=== PATIENT | male | born 1965 | race African-American/Black ===

== ENCOUNTER → 2018-12-17 | Day surgery (SDC) | payer OTHER ==
[2018-12-16 12:08] LABS: BASOPHILS # (AUTO) 0.1 (0.0-0.1); BASOPHILS % 1.1 % (0.0-1.0); EOSINOPHILS # (AUTO) 0.2 (0.0-0.4); HEMATOCRIT 38.8 % (38.2-49.6); HEMOGLOBIN 12.3 g/dL (14.0-18.0); LYMPHOCYTES # (AUTO) 1.3 (1.0-3.2); LYMPHOCYTES % 24.9 % (18.0-39.1); MEAN CORPUSCULAR HEMOGLOBIN 23.3 pg (28-32); MEAN CORPUSCULAR HGB CONC 31.7 g/dL (31-35); MEAN CORPUSCULAR VOLUME 73.5 fL (81-99); MONOCYTES # (AUTO) 0.7 (0.2-0.8); MONOCYTES % 12.9 % (4.4-11.3); NEUTROPHILS % 57.7 % (38.7-80.0); PLATELET COUNT 187 x10e3/uL (140-360); RED BLOOD COUNT 5.28 x10e6/uL (4.3-5.7); RED CELL DISTRIBUTION WIDTH 14.2 % (11.7-14.4)
[2018-12-16 12:23] LABS: INR 0.98; PROTHROMBIN TIME 13.5 seconds (11.9-14.5)
[2018-12-16 12:24] LABS: PARTIAL THROMBOPLASTIN TIME 42.3 seconds (23.8-35.5)
[2018-12-16 12:36] LABS: ANION GAP 13.7 mmol/L (8-16); CREATININE, SERUM 6.51 mg/dL (0.72-1.25); POTASSIUM 3.7 mmol/L (3.5-5.1)
[~2018-12-17] MED LIST: ACETAMINOPHEN 1000 MG/100 ML IV ONE; BUPIVACAINE 0.5%/EPI 30 ML SDV INJ ONE; CALCIUM ACETAT667 MG PO; CARVEDILOL12.5 MG PO; CEFAZOLIN SOD 1 GM/NS 50ML 100 ML IV ONE; DEXAMETHASONE SOD PHOS INJ 4 MG/ML VIAL ONE; EPHEDRINE SULFATE INJ 50 MG/10 ML SYR ONE; FENTANYL CITRATE/PF 100MCG/2 ML INJ ONE; HYDRALAZINE HCL25 MG PO; LIDOCAINE HCL 2% LOCAL INJ 5 ML SDV VIAL INJ ONE; ONDANSETRON HCL INJ 2MG/ML 2ML 2 MG/ML VIAL ONE; PROPOFOL IV EMULSION 10 MG/ML 20 ML VIAL ONE; REGLAN5 MG PO; SEVOFLURANE INHAL SOLN 250 ML PEN BTL ONE; SIMVASTATIN20 MG PO; SODIUM CHLORIDE 0.9% 500ML 500 ML ONE; lantus insulin SC
--- OUTSIDE RECORDS SUMMARY | 2018-12-17 05:23 | XMS REPORT | Clinical Summary ---
Author Author [facility] Address Unknown Phone Unavailable Care Team Providers Care Director Broadcast Name Role Phone Kaylee Rawls MD PCP Allergies No Known Allergies Medications Not on file Active Problems Problem Noted Date Essential hypertension 01/20/2016 Chronic renal failure, stage 5 01/20/2016 Diabetes mellitus type 2, controlled, with complications 01/20/2016 Social History Date Tobacco Use Types Packs/Day Years Used Never Smoker Sex Assigned at Date Recorded Not on file Industry Job Start Date Occupation Not on file Not on file Not on file Travel End Travel History Travel Start No recent travel history available. Last Filed Vital Signs Not on file Plan of Treatment Health Maintenance Due Date Last Done Comments DIABETIC RETINAL EYE EXAM 1966 DIABETIC FOOT EXAM 01/02/1976 COLONOSCOPY SCREENING 01/02/2016 SHINGLES VACCINES (#1) 01/02/2016 INFLUENZA VACCINE 01/23/2019 Results Not on fileafter 12/16/2017 Insurance Type Payer Benefit Subscriber ID Effective Phone Address Plan / Dates Group [facility] MEDICAID [facility] xxxxxxxxx [id number] COMM [employer] [id number] [facility] (Home) [place] [address] Advance Directives Patient has advance care planning documents on file. For more information, luciana leung contact: Osmin Canas [address] [place] [id number]
--- OUTSIDE RECORDS SUMMARY | 2018-12-17 05:24 | XMS REPORT ---
Author Author [facility] Address Unknown Phone Unavailable Care Team Providers Care Router Setter Name Role Phone Gloria GRESHAM Unavailable Unavailable Problems This patient has no known problems. Allergies, Adverse Reactions, Alerts This patient has no known allergies or adverse reactions. Medications This patient has no known medications. Results Test Description Test Time Test Comments Text Results Atomic Results Result Comments URINE CULTURE 2018-10-18 11:04:00 CULTURE (PEYTON) (test rdjf=3898) >100,000 col/mL skin alejandro HEMOGLOBIN [id number] 12:23:00* Test Item Value Reference Range Comments HEMOGLOBIN A1C (PEYTON) (test pvie=116) 7.1 % 4.3-6.1 POSSIBLE HEMOGLOBIN F VARIANT NOTED IN HEMOGLOBIN A1C CHROMATOGRAPH. SUGGEST HEM OGLOBIN ELECTROPHORESIS IF CLINICALLY INDICATED.U/S, ABDOMINAL, COMPLETE 2018-10-17 12:18:00Reason for Exam:->esrd; eval for renal txpFINAL REPORT TECHNIQUE: Grayscale ultrasound of the abdomen. INDICATION: 53-year-old man with end-stage renal disease for renal transplant evaluation. COMPARISON: None. FINDINGS: MIDLINE VASCULATURE: The visualized i nferior vena cava is patent. Portal vein is patent. The maximum visualized aorti c diameter is 2.4 cm. LIVER: The liver is normal in size and echogenicity with s mooth contour. No focal lesions. BILIARY:Gallbladder: No gallstones or sludge. N o gallbladder wall thickening, pericholecystic fluid, or distention. Negative so nographic Giles sign.Common bile duct measures 0.4 cm, within normal limits. No intrahepatic biliary ductal dilatation. PANCREAS: Visualized portions of the pa ncreas are unremarkable. SPLEEN: No splenomegaly. PERITONEUM: No free fluid. KID NEYS: The right kidney measures 9.7 cm in length and the left kidney measures 8. 6 cm in length. No hydronephrosis. No sonographically evident solid mass lesion. IMPRESSION:Small kidneys bilaterally, left more so than the right. Otherwise, unremarkable abdominal ultrasound. Signed: Laura Gomez MDReport Verified Da te/Time: 10/17/2018 12:18:51 Reading Location: [address] Radiology Reading Room P M RAD, CHEST, 2 [id number] 12:16:00Reason for Exam:->esrd; eval for renal txpFINAL REPORT TECHNIQUE: Frontal and lateral views of the chest. INDICATION: 53-year-old man with end-stage renal disease for renal transplant evaluation. COMPARISON: None. FINDINGS: LINES/TUBES: None. LUNGS: The lungs are well inflated. No consolidation or pulmonary edema. 4 mm circumscribed nodular density projects over the left lower lung zone. PLEURA: No pleural effusion or pneumothorax. HEART AND MEDIASTINUM: The cardiomediastinal silhouette is within normal limits. SOFT TISSUES AND BONES: Unremarkable. IMPRESSION:No acute cardiopulmonary abnormalities. 4 mm nodular density projecting over the left lower lung zone, likely a benign entity such as a vessel or calcified granuloma. If indicated, follow-up chest radiographs may be obtained in 6-12 months to reassess this finding. Signed: Laura Gomez MDReport Verified Date/Time: 10/17/2018 12:16:29 Reading Location: [address] Radiology Reading Room [id number] 08:43:00* Test Item Value Reference Range Comments PROSTATE SPECIFIC ANTIGEN (BEAKER) (test cemq=884) 1.1 ng/mL 0.0-4.0 COMPREHENSIVE METABOLIC [id number] 08:42:00* Test Item Value Reference Range Comments TOTAL PROTEIN (BEAKER) (test hndg=598) 8.4 gm/dL 6.0-8.3 ALBUMIN (BEAKER) (test vylx=9489) 4.1 g/dL 3.5-5.0 ALKALINE PHOSPHATASE (BEAKER) (test foaj=382) 100 U/L 40-150 BILIRUBIN TOTAL (BEAKER) (test nxgt=649) 0.5 mg/dL 0.2-1.2 SODIUM (BEAKER) (test kmtx=226) 138 meq/L 136-145 POTASSIUM (BEAKER) (test zymc=506) 4.1 meq/L 3.5-5.1 CHLORIDE (BEAKER) (test mqjp=970) 96 meq/L 98-107 CO2 (BEAKER) (test jayn=476) 32 meq/L 22-29 BLOOD UREA NITROGEN (BEAKER) (test surb=515) 30 mg/dL 7-21 CREATININE (BEAKER) (test vbak=024) 8.38 mg/dL 0.57-1.25 GLUCOSE RANDOM (BEAKER) (test mcbi=258) 121 mg/dL 70-105 CALCIUM (BEAKER) (test bcpc=560) 9.5 mg/dL 8.4-10.2 AST (SGOT) (BEAKER) (test nvug=207) 26 U/L 5-34 ALT (SGPT) (BEAKER) (test bveb=447) 27 U/L 6-55 EGFR (BEAKER) (test vmfa=7671) 8 mL/min/1.73 sq m ESTIMATED GFR IS NOT ACCURATE CREATININE CLEARANCE IN PREDICTING GLOMERULAR FILTRATION RATE. ESTIMATED GFR IS NOT APPLICABLE FOR DIALYSIS PATIENTS. PTH, [id number] 08:29:00* Test Item Value Reference Range Comments PARATHYROID HORMONE INTACT (BEAKER) (test oytt=965) 280.0 pg/mL 8.5-72.5 URIC [id number] 08:24:00* Test Item Value Reference Range Comments URIC ACID (BEAKER) (test ymrr=574) 4.8 mg/dL 2.6-7.2 [id number] 08:24:00* Test Item Value Reference Range Comments PHOSPHORUS (BEAKER) (test lkop=338) 2.7 mg/dL 2.3-4.7 LIPID [id number] 08:24:00* Test Item Value Reference Range Comments TRIGLYCERIDES (BEAKER) (test nbds=961) 97 mg/dL CHOLESTEROL (BEAKER) (test ppqt=109) 184 mg/dL HDL CHOLESTEROL (BEAKER) (test ollp=666) 45 mg/dL LDL CHOLESTEROL CALCULATED (BEAKER) (test xqfv=014) 120 mg/dL Triglyceride Reference Range: Low Risk <150 Borderline 150-199 High Risk 200-499 Very High Risk >=500Cholesterol Reference Range: Low Risk <200 Borderline 200-239 High Risk >240HDL Cholesterol Reference Range: Low Risk >=60 High Risk <40LDL Cholesterol Reference Range: Optimal <100 Near Optimal 100-129 Borderline 130-159 High 160-189 Very High >=190 GAMMA GLUTAMYL TRANSFERASE (GGT)2018-10-17 08:24:00* Test Item Value Reference Range Comments GAMMA GLUTAMYL TRANSFERASE (BEAKER) (test wxiz=780) 49 U/L 9-64 LACTATE DEHYDROGENASE (LDH)2018-10-17 08:24:00* Test Item Value Reference Range Comments LACTATE DEHYDROGENASE (BEAKER) (test ebfn=034) 179 U/L 125-220 [id number] 08:18:00* Test Item Value Reference Range Comments PROTIME (BEAKER) (test wohv=166) 13.8 seconds 11.7-14.7 INR (BEAKER) (test ziqz=485) 1.0 <=5.9 PARTIAL THROMBOPLASTIN TIME (BEAKER) (test vpji=308) 41.3 seconds 22.5-36.0 RECOMMENDED COUMADIN/WARFARIN INR THERAPY RANGESSTANDARD DOSE: 2.0 - 3.0 Inclu jojo: PROPHYLAXIS for venous thrombosis, systemic embolization; TREATMENT for inderjit ous thrombosis and/or pulmonary embolus.HIGH RISK: Target INR is 2.5-3.5 for pat ients with mechanical heart valves.URINALYSIS W/ [id number] 08:09:00 * Test Item Value Reference Range Comments COLOR (BEAKER) (test urts=135) Yellow CLARITY (BEAKER) (test gbtr=522) Cloudy SPECIFIC GRAVITY UA (BEAKER) (test pufm=259) 1.014 1.001-1.035 PH UA (BEAKER) (test ckmo=052) 6.0 5.0-8.0 PROTEIN UA (BEAKER) (test efar=517) 300 mg/dL Negative GLUCOSE UA (BEAKER) (test uqhi=612) Negative Negative KETONES UA (BEAKER) (test lqvh=466) Negative Negative BILIRUBIN UA (BEAKER) (test folz=464) Negative Negative BLOOD UA (BEAKER) (test yxql=180) Small Negative NITRITE UA (BEAKER) (test kmdl=616) Negative Negative LEUKOCYTE ESTERASE UA (BEAKER) (test gufl=979) Large Negative UROBILINOGEN UA (BEAKER) (test rumg=449) 2.0 mg/dL 0.2-1.0 RBC UA (BEAKER) (test tqqx=783) 69 /HPF WBC UA (BEAKER) (test bbse=967) 1162 /HPF BACTERIA (BEAKER) (test gtwf=330) Occasional MUCUS (BEAKER) (test zuay=9324) Rare SOURCE(BEAKER) (test sfqb=3799) CBC W/PLT COUNT & AUTO [id number] 08:06:00* Test Item Value Reference Range Comments WHITE BLOOD CELL COUNT (BEAKER) (test fzxt=827) 6.1 K/ L 3.5-10.5 RED BLOOD CELL COUNT (BEAKER) (test qkbp=593) 5.12 M/ L 4.63-6.08 HEMOGLOBIN (BEAKER) (test xeyy=598) 11.7 GM/DL 13.7-17.5 HEMATOCRIT (BEAKER) (test ufmt=396) 38.8 % 40.1-51.0 MEAN CORPUSCULAR VOLUME (BEAKER) (test dqjg=697) 75.8 fL 79.0-92.2 MEAN CORPUSCULAR HEMOGLOBIN (BEAKER) (test jbgy=890) 22.9 pg 25.7-32.2 MEAN CORPUSCULAR HEMOGLOBIN CONC (BEAKER) (test ywoc=197) 30.2 GM/DL 32.3-36.5 RED CELL DISTRIBUTION WIDTH (BEAKER) (test txoq=763) 14.6 % 11.6-14.4 PLATELET COUNT (BEAKER) (test stqp=851) 191 K/CU MM 150-450 MEAN PLATELET VOLUME (BEAKER) (test hwag=710) 9.0 fL 9.4-12.4 NUCLEATED RED BLOOD CELLS (BEAKER) (test ugsr=235) 0 /100 WBC 0-0 NEUTROPHILS RELATIVE PERCENT (BEAKER) (test tzsz=440) 53 % LYMPHOCYTES RELATIVE PERCENT (BEAKER) (test ckaz=576) 31 % MONOCYTES RELATIVE PERCENT (BEAKER) (test majg=195) 12 % EOSINOPHILS RELATIVE PERCENT (BEAKER) (test lbbs=445) 3 % BASOPHILS RELATIVE PERCENT (BEAKER) (test rizb=855) 1 % NEUTROPHILS ABSOLUTE COUNT (BEAKER) (test dcif=541) 3.21 K/ L 1.78-5.38 LYMPHOCYTES ABSOLUTE COUNT (BEAKER) (test skng=962) 1.86 K/ L 1.32-3.57 MONOCYTES ABSOLUTE COUNT (BEAKER) (test mmxt=364) 0.71 K/ L 0.30-0.82 EOSINOPHILS ABSOLUTE COUNT (BEAKER) (test hipw=620) 0.20 K/ L 0.04-0.54 BASOPHILS ABSOLUTE COUNT (BEAKER) (test oted=654) 0.06 K/ L 0.01-0.08 IMMATURE GRANULOCYTES-RELATIVE PERCENT (BEAKER) (test vfzo=5593) 0 % 0-1 CYTOMEGALOVIRUS ANTIBODY, [id number] 12:42:00* Test Item Value Reference Range Comments CYTOMEGALOVIRUS, IGG (BEAKER) (test euxd=2166) Positive Negative, Equivocal CMV IgG Result Interpretation: </=0.8 Al Negative 0.9-1.0 Al Equivocal >/=1.1 Al PositiveCYTOMEGALOVIRUS ANTIBODY, [id number] 12:42:00* Test Item Value Reference Range Comments CYTOMEGALOVIRUS IGM ANTIBODY (BEAKER) (test hoyv=3850) Negative Negative, Equivocal CMV IgM Result Interpretation: </=0.8 Al Negative 0.9-1.0 Al Equivocal > /=1.1 Al PositiveEBV ANTIBODY, [id number] 12:42:00* Test Item Value Reference Range Comments VIOLET TAVERAS VIRAL CAPSID ANTIGEN IGG (BEAKER) (test rtvd=7605) Positive Negative, Equivocal Violet Taveras Viral Capsid Antigen IgG Result Interpretation: </=0.8 Al Negative 0.9-1.0 Al Equivocal >/=1.1 Al PositiveEBV ANTIBODY, [id number] 12:42:00* Test Item Value Reference Range Comments VIOLET TAVERAS VIRAL CAPSID ANTIGEN IGM (BEAKER) (test dyud=1870) Negative Negative, Equivocal Violet Taveras Viral Capsid Antigen IgM Result Interpretation: </=0.8 Al Negative 0.9-1.0 Al Equivocal >/=1.1 Al PositiveVARICELLA ZOSTER ANTIBODY, [id number] 12:42:00* Test Item Value Reference Range Comments VARICELLA ZOSTER IGG (AL) (BEAKER) (test usfu=6577) 5.8 VARICELLA ZOSTER RESULT INTERPRETATIONS: <=0.8 Al Nonreactive: Presumed non-immune to VZV 0.9-1.0 Al Equivocal >=1.1 Al Reactive: Presumed immune to [id number] 11:04:00* Test Item Value Reference Range Comments RPR SCREEN (PEYTON) (test nykk=077) Nonreactive Nonreactive HEPATITIS B SURFACE [id number] 10:07:00* Test Item Value Reference Range Comments HEPATITIS B SURFACE ANTIGEN (2) (CrushBlvdSUE) (test rhuj=3372) Nonreactive Nonreactive HEPATITIS B SURFACE [id number] 10:07:00* Test Item Value Reference Range Comments HEPATITIS B SURFACE ANTIBODY (PEYTON) (test pttu=837) 14.6 mIU/mL <8.0 HEPATITIS B CORE ANTIBODY, [id number] 10:07:00* Test Item Value Reference Range Comments HEPATITIS B CORE IGM ANTIBODY ([facility]ush[facility]vd[facility]UE) (test xbgm=222) Nonreactive Nonreactive HEPATITIS C [id number] 10:07:00* Test Item Value Reference Range Comments HEPATITIS C ANTIBODY (PEYTON) (test tuma=438) Nonreactive Nonreactive HIV-1 ANTIGEN WITH HIV-1/2 [id number] 10:07:00* Test Item Value Reference Range Comments HIV-1 ANTIGEN WITH HIV 1\T\2 ANTIBODY (2) (Roamz) (test ojid=3753) Nonreactive Nonreactive
--- OUTSIDE RECORDS SUMMARY | 2018-12-17 05:24 | XMS REPORT | Clinical Summary ---
Author Author MARIPOSA [facility]Trans[facility] CorporationSh[facility] Address Unknown Phone Unavailable Care Team Providers Care Crop Duster Name Role Phone Kaylee Rawls MD PCP Allergies No Known Allergies Medications End Date Status Medication Sig Dispensed Refills Start Date Active carvedilol (COREG) 25 MG Take 25 mg by 0 tablet mouth 2 (two) times daily with breakfast and dinner. Active calcium acetate (PHOSLO) Take 667 mg 0 667 mg capsule by mouth 3 (three) times daily with meals. Active hydrALAZINE (APRESOLINE) Take 100 mg 0 100 MG tablet by mouth 3 (three) times daily. Active loratadine (CLARITIN) 10 Take 10 mg by 0 mg tablet mouth daily. Active benzonatate (TESSALON) Take 100 mg 0 100 MG capsule by mouth 3 (three) times daily as needed for Cough. Active metoclopramide (REGLAN) 5 Take 5 mg by 0 MG tablet mouth 4 (four) times daily. Active gabapentin (NEURONTIN) Take 100 mg 0 100 MG capsule by mouth 3 (three) times daily. 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 2 11/01/2018 diabetes mellitus, unspecified proliferative retinopathy type Pre-transplant evaluation for chronic kidney disease 08/06/2018 ESRD (end stage renal disease) 08/06/2018 Essential hypertension 08/06/2018 Type 2 diabetes mellitus with chronic kidney disease on chronic dialysis, 08/06/2018 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 use Encounters Care Team Description Date Type Specialty Shabana Gonzalez MSW 11/06/2018 Social Work Transplant Virginia Myers RN 11/04/2018 Telephone Transplant Tayler Navarro MD 10/31/2018 Follow-Up Transplant Tayler Navarro MD 10/31/2018 Evaluation Transplant Tayler Navarro MD Pre-transplant evaluation for chronic kidney disease (Primary Dx); ESRD (end stage renal disease) (HCC); Type 2 diabetes mellitus with chronic kidney disease on chronic dialysis, 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 use (HCC); Essential hypertension; 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, unspecified proliferative retinopathy type (HCC); Diabetic polyneuropathy associated with type 2 diabetes mellitus (HCC); Secondary hyperparathyroidism of renal origin (HCC); Anemia of renal disease 10/31/2018 Evaluation Transplant Arden Dawn II, MD Anemia of renal disease; Other specified diabetes mellitus with stage 4 chronic kidney disease, unspecified whether care home insulin use (HCC); Hyperlipidemia, unspecified hyperlipidemia type; Hypertensive renal disease; Pre-transplant evaluation for chronic kidney disease; ESRD (end stage renal disease) (HCC) 10/17/2018 Hospital Radiology Encounter Arden Dawn II, MD Anemia of renal disease; Other specified diabetes mellitus with stage 4 chronic kidney disease, 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 use (HCC); Hyperlipidemia, unspecified hyperlipidemia type; Hypertensive renal disease; Pre-transplant evaluation for chronic kidney disease; ESRD (end stage renal disease) (HCC) 10/17/2018 Hospital Encounter Arden Dawn II, MD Anemia of renal disease; Other specified diabetes mellitus with stage 4 chronic kidney disease, unspecified whether care home insulin use (HCC); Hyperlipidemia, unspecified hyperlipidemia type; Hypertensive renal disease; Pre-transplant evaluation for chronic kidney disease; ESRD (end stage renal disease) ([facility]) 10/17/2018 Hospital Cardiology Encounter Arden Dawn II, MD Anemia of renal disease; Other specified diabetes mellitus with stage 4 chronic kidney disease, 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 use (HCC); Hyperlipidemia, unspecified hyperlipidemia type; Hypertensive renal disease; Pre-transplant evaluation for chronic kidney disease; ESRD (end stage renal disease) ([facility]) 10/17/2018 Hospital Cardiology Encounter Arden Dawn II, MD Anemia of renal disease; Other specified diabetes mellitus with stage 4 chronic kidney disease, unspecified whether care home insulin use (HCC); Hyperlipidemia, unspecified hyperlipidemia type; Hypertensive renal disease; Pre-transplant evaluation for chronic kidney disease; ESRD (end stage renal disease) ([facility]) 10/17/2018 Orders Only Kaylee Huffman MD 10/17/2018 Outside Orders Tayler Navarro MD Taylor, Sherita, RN Pre-transplant evaluation for chronic kidney disease; ESRD (end stage renal disease) ([facility]); Hypertension, unspecified type; Type 2 diabetes mellitus with chronic kidney disease on chronic dialysis, unspecified whether care home insulin use ([facility]) 08/06/2018 Office Visit Transplant Arden Dawn II, MD Anemia of renal disease; Other specified diabetes mellitus with stage 4 chronic kidney disease, unspecified whether care home insulin use ([facility]); Hyperlipidemia, unspecified hyperlipidemia type; Hypertensive renal disease; Pre-transplant evaluation for chronic kidney disease; ESRD (end stage renal disease) ([facility]) 08/06/2018 Orders Only Transplant Hepatology Sagrario Gold Appointment 08/05/2018 Telephone Transplant Anemia of renal disease (Primary Dx); Other specified diabetes mellitus with stage 4 chronic kidney disease, unspecified whether care home insulin use ([facility]); Hyperlipidemia, unspecified hyperlipidemia type; Hypertensive renal disease; Pre-transplant evaluation for chronic kidney disease; ESRD (end stage renal disease) ([facility]) 07/23/2018 Office Visit Transplant Sagrario Gold Appointment 07/22/2018 Telephone Transplant Adriana Camacho 06/20/2018 Abstract Transplant after 12/16/2017 Family History Medical History Relation Name Comments Diabetes Brother Hypertension Brother Diabetes Father Hypertension Father Kidney disease Father Diabetes Mother Heart failure Mother Hypertension Mother Kidney disease Mother Diabetes Sister Hypertension Sister Hypertension Son Stroke Son from stroke Relation Name Status Comments Brother Father Mother Sister Son Social History Date Tobacco Use Types Packs/Day Years Used Never Smoker Smokeless Tobacco: Never Used Alcohol Use Drinks/Week oz/Week Comments No Alcohol Habits Answer Date Recorded How often do you have a drink containing alcohol? Never 10/31/2018 How many drinks containing alcohol do you have on Not asked a typical day when you are drinking? How often do you have six or more drinks on one Not asked occasion? Sex Assigned at Date Recorded Not on file Industry Job Start Date Occupation Not on file Not on file Not on file Travel End Travel History Travel Start No recent travel history available. Last Filed Vital Signs Time Taken Vital Sign Reading 10/31/2018 11:26 AM CDT Blood Pressure 133/83 10/31/2018 11:26 AM CDT Pulse 68 10/31/2018 11:26 AM CDT Temperature 36.7 C (98 F) 10/31/2018 11:26 AM CDT Respiratory Rate 18 10/31/2018 11:26 AM CDT Oxygen Saturation 98% - Inhaled Oxygen - Concentration 10/31/2018 11:27 AM CDT Weight 92 kg (202 lb 14.4 oz) 10/31/2018 11:27 AM CDT Height 172.7 cm (5' 8") 10/31/2018 11:27 AM CDT Body Mass Index 30.85 Plan of Treatment Not on file Procedures Comments Procedure Name Priority Date/Time Associated Diagnosis TRANSFUSION SERVICE 10/18/2018 REPORT - SCAN 6:04 PM CDT ECHOCARDIOGRAM REPORT - 10/17/2018 SCAN 9:22 PM CDT PERIPHERAL VASCULAR 10/17/2018 REPORT - SCAN 9:22 PM CDT XR CHEST 2 VIEWS Routine 10/17/2018 Anemia of renal disease 11:42 AM CDT Other specified diabetes mellitus with stage 4 chronic kidney disease, 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 use (HCC) Hyperlipidemia, unspecified hyperlipidemia type Hypertensive renal disease Pre-transplant evaluation for chronic kidney disease ESRD (end stage renal disease) (HCC) US ABDOMEN COMPLETE Routine 10/17/2018 Anemia of renal disease 11:03 AM CDT Other specified diabetes mellitus with stage 4 chronic kidney disease, unspecified whether care home insulin use (HCC) Hyperlipidemia, unspecified hyperlipidemia type Hypertensive renal disease Pre-transplant evaluation for chronic kidney disease ESRD (end stage renal disease) (HCC) STRESS ECHO WITH CONTRAST Routine 10/17/2018 Anemia of renal disease & TRACING 9:31 AM CDT Other specified diabetes mellitus with stage 4 chronic kidney disease, 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 use (HCC) Hyperlipidemia, unspecified hyperlipidemia type Hypertensive renal disease Pre-transplant evaluation for chronic kidney disease ESRD (end stage renal disease) (HCC) 2D ECHO W/ DOPPLER Routine 10/17/2018 Anemia of renal disease (CW/PW/COLOR) 9:08 AM CDT Other specified diabetes mellitus with stage 4 chronic kidney disease, 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 use (HCC) Hyperlipidemia, unspecified hyperlipidemia type Hypertensive renal disease Pre-transplant evaluation for chronic kidney disease ESRD (end stage renal disease) (HCC) ECG 12-LEAD Routine 10/17/2018 Anemia of renal disease 9:03 AM CDT Other specified diabetes mellitus with stage 4 chronic kidney disease, 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 use (HCC) Hyperlipidemia, unspecified hyperlipidemia type Hypertensive renal disease Pre-transplant evaluation for chronic kidney disease ESRD (end stage renal disease) (HCC) URINALYSIS W/ MICROSCOPIC Routine 10/17/2018 Anemia of renal disease 7:47 AM CDT Other specified diabetes mellitus with stage 4 chronic kidney disease, unspecified whether care home insulin use (HCC) Hyperlipidemia, unspecified hyperlipidemia type Hypertensive renal disease Pre-transplant evaluation for chronic kidney disease ESRD (end stage renal disease) (HCC) URINE CULTURE Routine 10/17/2018 Anemia of renal disease 7:47 AM CDT Other specified diabetes mellitus with stage 4 chronic kidney disease, unspecified whether care home insulin use (HCC) Hyperlipidemia, unspecified hyperlipidemia type Hypertensive renal disease Pre-transplant evaluation for chronic kidney disease ESRD (end stage renal disease) (HCC) CBC W/PLT COUNT & AUTO Routine 10/17/2018 Anemia of renal disease DIFFERENTIAL 7:46 AM CDT Other specified diabetes mellitus with stage 4 chronic kidney disease, 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 use (HCC) Hyperlipidemia, unspecified hyperlipidemia type Hypertensive renal disease Pre-transplant evaluation for chronic kidney disease ESRD (end stage renal disease) (HCC) BLOOD TYPING, AUTOMATED Routine 10/17/2018 Anemia of renal disease 7:46 AM CDT Other specified diabetes mellitus with stage 4 chronic kidney disease, unspecified whether care home insulin use (HCC) Hyperlipidemia, unspecified hyperlipidemia type Hypertensive renal disease Pre-transplant evaluation for chronic kidney disease ESRD (end stage renal disease) (HCC) DIRECT AHG (YONI)/DIRECT Routine 10/17/2018 Anemia of renal disease HERMAN 7:46 AM CDT Other specified diabetes mellitus with stage 4 chronic kidney disease, unspecified whether care home insulin use (HCC) Hyperlipidemia, unspecified hyperlipidemia type Hypertensive renal disease Pre-transplant evaluation for chronic kidney disease ESRD (end stage renal disease) (HCC) PSA Routine 10/17/2018 Anemia of renal disease 7:46 AM CDT Other specified diabetes mellitus with stage 4 chronic kidney disease, unspecified whether care home insulin use (HCC) Hyperlipidemia, unspecified hyperlipidemia type Hypertensive renal disease Pre-transplant evaluation for chronic kidney disease ESRD (end stage renal disease) (HCC) HEMOGLOBIN A1C Routine 10/17/2018 Anemia of renal disease 7:46 AM CDT Other specified diabetes mellitus with stage 4 chronic kidney disease, unspecified whether care home insulin use (HCC) Hyperlipidemia, unspecified hyperlipidemia type Hypertensive renal disease Pre-transplant evaluation for chronic kidney disease ESRD (end stage renal disease) (HCC) LIPID PANEL Routine 10/17/2018 Anemia of renal disease 7:46 AM CDT Other specified diabetes mellitus with stage 4 chronic kidney disease, 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 use (HCC) Hyperlipidemia, unspecified hyperlipidemia type Hypertensive renal disease Pre-transplant evaluation for chronic kidney disease ESRD (end stage renal disease) (HCC) URIC ACID Routine 10/17/2018 Anemia of renal disease 7:46 AM CDT Other specified diabetes mellitus with stage 4 chronic kidney disease, 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 use (HCC) Hyperlipidemia, unspecified hyperlipidemia type Hypertensive renal disease Pre-transplant evaluation for chronic kidney disease ESRD (end stage renal disease) (HCC) PT/APTT Routine 10/17/2018 Anemia of renal disease 7:46 AM CDT Other specified diabetes mellitus with stage 4 chronic kidney disease, unspecified whether care home insulin use (HCC) Hyperlipidemia, unspecified hyperlipidemia type Hypertensive renal disease Pre-transplant evaluation for chronic kidney disease ESRD (end stage renal disease) (HCC) PTH, INTACT Routine 10/17/2018 Anemia of renal disease 7:46 AM CDT Other specified diabetes mellitus with stage 4 chronic kidney disease, unspecified whether care home insulin use (HCC) Hyperlipidemia, unspecified hyperlipidemia type Hypertensive renal disease Pre-transplant evaluation for chronic kidney disease ESRD (end stage renal disease) (HCC) PHOSPHORUS Routine 10/17/2018 Anemia of renal disease 7:46 AM CDT Other specified diabetes mellitus with stage 4 chronic kidney disease, unspecified whether care home insulin use (HCC) Hyperlipidemia, unspecified hyperlipidemia type Hypertensive renal disease Pre-transplant evaluation for chronic kidney disease ESRD (end stage renal disease) (HCC) LACTATE DEHYDROGENASE Routine 10/17/2018 Anemia of renal disease (LDH) 7:46 AM CDT Other specified diabetes mellitus with stage 4 chronic kidney disease, 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 use (HCC) Hyperlipidemia, unspecified hyperlipidemia type Hypertensive renal disease Pre-transplant evaluation for chronic kidney disease ESRD (end stage renal disease) (HCC) GAMMA GLUTAMYL Routine 10/17/2018 Anemia of renal disease TRANSFERASE (GGT) 7:46 AM CDT Other specified diabetes mellitus with stage 4 chronic kidney disease, unspecified whether care home insulin use (HCC) Hyperlipidemia, unspecified hyperlipidemia type Hypertensive renal disease Pre-transplant evaluation for chronic kidney disease ESRD (end stage renal disease) (HCC) COMPREHENSIVE METABOLIC Routine 10/17/2018 Anemia of renal disease PANEL 7:46 AM CDT Other specified diabetes mellitus with stage 4 chronic kidney disease, unspecified whether care home insulin use (HCC) Hyperlipidemia, unspecified hyperlipidemia type Hypertensive renal disease Pre-transplant evaluation for chronic kidney disease ESRD (end stage renal disease) (HCC) CBC W/PLT COUNT & AUTO Routine 10/17/2018 Anemia of renal disease DIFFERENTIAL 7:46 AM CDT Other specified diabetes mellitus with stage 4 chronic kidney disease, unspecified whether care home insulin use (HCC) Hyperlipidemia, unspecified hyperlipidemia type Hypertensive renal disease Pre-transplant evaluation for chronic kidney disease ESRD (end stage renal disease) (HCC) TRANSFUSION SERVICE 08/07/2018 REPORT - SCAN 6:05 PM FRICTION WELDING MACHINE OPERATOR T SPOT TB Routine 08/06/2018 Anemia of renal disease 8:09 AM FRICTION WELDING MACHINE OPERATOR Other specified diabetes mellitus with stage 4 chronic kidney disease, unspecified whether care home insulin use (HCC) Hyperlipidemia, unspecified hyperlipidemia type Hypertensive renal disease Pre-transplant evaluation for chronic kidney disease ESRD (end stage renal disease) (HCC) HLA TYPING CI Routine 08/06/2018 Anemia of renal disease 8:09 AM FRICTION WELDING MACHINE OPERATOR Other specified diabetes mellitus with stage 4 chronic kidney disease, 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 use (HCC) Hyperlipidemia, unspecified hyperlipidemia type Hypertensive renal disease Pre-transplant evaluation for chronic kidney disease ESRD (end stage renal disease) (HCC) HLA TYPING CII Routine 08/06/2018 Anemia of renal disease 8:09 AM FRICTION WELDING MACHINE OPERATOR Other specified diabetes mellitus with stage 4 chronic kidney disease, unspecified whether care home insulin use (HCC) Hyperlipidemia, unspecified hyperlipidemia type Hypertensive renal disease Pre-transplant evaluation for chronic kidney disease ESRD (end stage renal disease) (HCC) TYPE AND SCREEN, Routine 08/06/2018 Anemia of renal disease AUTOMATED 8:08 AM FRICTION WELDING MACHINE OPERATOR Other specified diabetes mellitus with stage 4 chronic kidney disease, unspecified whether care home insulin use (HCC) Hyperlipidemia, unspecified hyperlipidemia type Hypertensive renal disease Pre-transplant evaluation for chronic kidney disease ESRD (end stage renal disease) (HCC) AB SPECIFICITY CLASS I Routine 08/06/2018 Anemia of renal disease 8:08 AM FRICTION WELDING MACHINE OPERATOR Other specified diabetes mellitus with stage 4 chronic kidney disease, 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 use (HCC) Hyperlipidemia, unspecified hyperlipidemia type Hypertensive renal disease Pre-transplant evaluation for chronic kidney disease ESRD (end stage renal disease) (HCC) VARICELLA ZOSTER Routine 08/06/2018 Anemia of renal disease ANTIBODY, IGG 8:08 AM FRICTION WELDING MACHINE OPERATOR Other specified diabetes mellitus with stage 4 chronic kidney disease, unspecified whether care home insulin use (HCC) Hyperlipidemia, unspecified hyperlipidemia type Hypertensive renal disease Pre-transplant evaluation for chronic kidney disease ESRD (end stage renal disease) (HCC) RPR Routine 08/06/2018 Anemia of renal disease 8:08 AM FRICTION WELDING MACHINE OPERATOR Other specified diabetes mellitus with stage 4 chronic kidney disease, 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 use (HCC) Hyperlipidemia, unspecified hyperlipidemia type Hypertensive renal disease Pre-transplant evaluation for chronic kidney disease ESRD (end stage renal disease) (HCC) HIV-1 ANTIGEN WITH Routine 08/06/2018 Anemia of renal disease HIV-1/2 ANTIBODY 8:08 AM FRICTION WELDING MACHINE OPERATOR Other specified diabetes mellitus with stage 4 chronic kidney disease, unspecified whether care home insulin use (HCC) Hyperlipidemia, unspecified hyperlipidemia type Hypertensive renal disease Pre-transplant evaluation for chronic kidney disease ESRD (end stage renal disease) (HCC) HEPATITIS C ANTIBODY Routine 08/06/2018 Anemia of renal disease 8:08 AM FRICTION WELDING MACHINE OPERATOR Other specified diabetes mellitus with stage 4 chronic kidney disease, 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 use (HCC) Hyperlipidemia, unspecified hyperlipidemia type Hypertensive renal disease Pre-transplant evaluation for chronic kidney disease ESRD (end stage renal disease) (HCC) HEPATITIS B CORE Routine 08/06/2018 Anemia of renal disease ANTIBODY, IGM 8:08 AM FRICTION WELDING MACHINE OPERATOR Other specified diabetes mellitus with stage 4 chronic kidney disease, 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 use (HCC) Hyperlipidemia, unspecified hyperlipidemia type Hypertensive renal disease Pre-transplant evaluation for chronic kidney disease ESRD (end stage renal disease) (HCC) HEPATITIS B SURFACE Routine 08/06/2018 Anemia of renal disease ANTIGEN 8:08 AM FRICTION WELDING MACHINE OPERATOR Other specified diabetes mellitus with stage 4 chronic kidney disease, 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 use (HCC) Hyperlipidemia, unspecified hyperlipidemia type Hypertensive renal disease Pre-transplant evaluation for chronic kidney disease ESRD (end stage renal disease) (HCC) HEPATITIS B SURFACE Routine 08/06/2018 Anemia of renal disease ANTIBODY 8:08 AM FRICTION WELDING MACHINE OPERATOR Other specified diabetes mellitus with stage 4 chronic kidney disease, 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 use (HCC) Hyperlipidemia, unspecified hyperlipidemia type Hypertensive renal disease Pre-transplant evaluation for chronic kidney disease ESRD (end stage renal disease) (HCC) EBV ANTIBODY, IGM Routine 08/06/2018 Anemia of renal disease 8:08 AM FRICTION WELDING MACHINE OPERATOR Other specified diabetes mellitus with stage 4 chronic kidney disease, unspecified whether care home insulin use (HCC) Hyperlipidemia, unspecified hyperlipidemia type Hypertensive renal disease Pre-transplant evaluation for chronic kidney disease ESRD (end stage renal disease) (HCC) EBV ANTIBODY, IGG Routine 08/06/2018 Anemia of renal disease 8:08 AM FRICTION WELDING MACHINE OPERATOR Other specified diabetes mellitus with stage 4 chronic kidney disease, 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 use (HCC) Hyperlipidemia, unspecified hyperlipidemia type Hypertensive renal disease Pre-transplant evaluation for chronic kidney disease ESRD (end stage renal disease) (HCC) CYTOMEGALOVIRUS ANTIBODY, Routine 08/06/2018 Anemia of renal disease IGM 8:08 AM FRICTION WELDING MACHINE OPERATOR Other specified diabetes mellitus with stage 4 chronic kidney disease, 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 use (HCC) Hyperlipidemia, unspecified hyperlipidemia type Hypertensive renal disease Pre-transplant evaluation for chronic kidney disease ESRD (end stage renal disease) (HCC) CYTOMEGALOVIRUS ANTIBODY, Routine 08/06/2018 Anemia of renal disease IGG 8:08 AM FRICTION WELDING MACHINE OPERATOR Other specified diabetes mellitus with stage 4 chronic kidney disease, unspecified whether care home insulin use (HCC) Hyperlipidemia, unspecified hyperlipidemia type Hypertensive renal disease Pre-transplant evaluation for chronic kidney disease ESRD (end stage renal disease) (HCC) FLOW PRA CLASS I WITH Routine 08/06/2018 Anemia of renal disease REFLEX TO ANTIBODY 8:08 AM FRICTION WELDING MACHINE OPERATOR Other specified diabetes SPECIFICITY mellitus with stage 4 chronic kidney disease, 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 use (HCC) Hyperlipidemia, unspecified hyperlipidemia type Hypertensive renal disease Pre-transplant evaluation for chronic kidney disease ESRD (end stage renal disease) (HCC) FLOW PRA CLASS II WITH Routine 08/06/2018 Anemia of renal disease REFLEX TO ANTIBODY 8:08 AM FRICTION WELDING MACHINE OPERATOR Other specified diabetes SPECIFICITY mellitus with stage 4 chronic kidney disease, unspecified whether care home insulin use (HCC) Hyperlipidemia, unspecified hyperlipidemia type Hypertensive renal disease Pre-transplant evaluation for chronic kidney disease ESRD (end stage renal disease) (HCC) after 12/16/2017 Results * TRANSFUSION SERVICE REPORT - SCAN (10/18/2018 6:04 PM CDT) Only the most recent of 2 results within the time period is included. Narrative Performed At * ECHOCARDIOGRAM REPORT - SCAN (10/17/2018 9:22 PM CDT) Narrative Performed At * PERIPHERAL VASCULAR REPORT - SCAN (10/17/2018 9:22 PM CDT) Narrative Performed At * XR chest 2 views (10/17/2018 11:42 AM CDT) Specimen Narrative Performed At FINAL REPORT [employer] TECHNIQUE: Frontal and lateral views of the [...] normal limits. SOFT TISSUES AND BONES: Unremarkable. IMPRESSION: No acute cardiopulmonary abnormalities. 4 mm nodular density projecting over the left lower lung zone, likely a benign entity such as a vessel or calcified granuloma. If indicated, follow-up chest radiographs may be obtained in 6-12 months to reassess this finding. Signed: Laura Stein MD Report Verified Date/Time:10/17/2018 12:16:29 Reading Location: [address] Radiology Reading Room Procedure Note Interface, External Ris In - 10/17/2018 12:18 PM CDT FINAL REPORT TECHNIQUE: Frontal and lateral views of [...] normal limits. SOFT TISSUES AND BONES: Unremarkable. IMPRESSION: No acute cardiopulmonary abnormalities. 4 mm nodular density projecting over the left lower lung zone, likely a benign entity such as a vessel or calcified granuloma. If indicated, follow-up chest radiographs may be obtained in 6-12 months to reassess this finding. Signed: Laura Stein MD Report Verified Date/Time: 10/17/2018 12:16:29 Reading Location: [address] Radiology Reading Room Performing Organization Address City/State/Zipcode Phone Number [employer] * US abdomen complete (10/17/2018 11:03 AM CDT) Specimen Narrative Performed At FINAL REPORT [employer] TECHNIQUE: Grayscale ultrasound of the abdomen. INDICATION: 53-year-old man with end-stage renal disease for renal transplant evaluation. COMPARISON: None. FINDINGS: MIDLINE VASCULATURE: The visualized inferior vena cava is patent. Portal vein is patent. The maximum visualized aortic diameter is 2.4 cm. LIVER: The liver is normal in size and echogenicity with smooth contour. No focal lesions. BILIARY: Gallbladder: No gallstones or sludge. No gallbladder wall thickening, pericholecystic fluid, or distention. Negative sonographic Giles sign. Common bile duct measures 0.4 cm, within normal limits. No intrahepatic biliary ductal dilatation. PANCREAS: Visualized portions of the pancreas are unremarkable. SPLEEN: No splenomegaly. PERITONEUM: No free fluid. KIDNEYS: The right kidney measures 9.7 cm in length and the left kidney measures 8.6 cm in length. No hydronephrosis. No sonographically evident solid mass lesion. IMPRESSION: Small kidneys bilaterally, left more so than the right. Otherwise, unremarkable abdominal ultrasound. Signed: Laura Stein MD Report Verified Date/Time:10/17/2018 12:18:51 Reading Location: [address] Radiology Reading Room Procedure Note Interface, External Ris In - 10/17/2018 1:15 PM CDT FINAL REPORT TECHNIQUE: Grayscale ultrasound of the abdomen. INDICATION: 53-year-old man with end-stage renal disease for renal transplant evaluation. COMPARISON: None. FINDINGS: MIDLINE VASCULATURE: The visualized inferior vena cava is patent. Portal vein is patent. The maximum visualized aortic diameter is 2.4 cm. LIVER: The liver is normal in size and echogenicity with smooth contour. No focal lesions. BILIARY: Gallbladder: No gallstones or sludge. No gallbladder wall thickening, pericholecystic fluid, or distention. Negative sonographic Giles sign. Common bile duct measures 0.4 cm, within normal limits. No intrahepatic biliary ductal dilatation. PANCREAS: Visualized portions of the pancreas are unremarkable. SPLEEN: No splenomegaly. PERITONEUM: No free fluid. KIDNEYS: The right kidney measures 9.7 cm in length and the left kidney measures 8.6 cm in length. No hydronephrosis. No sonographically evident solid mass lesion. IMPRESSION: Small kidneys bilaterally, left more so than the right. Otherwise, unremarkable abdominal ultrasound. Signed: Laura Stein MD Report Verified Date/Time: 10/17/2018 12:18:51 Reading Location: [address] Radiology Reading Room Performing Organization Address City/State/Zipcode Phone Number [employer] * STRESS ECHO With Contrast & Tracing (10/17/2018 9:31 AM CDT) Ejection Fraction [facility] ECHO HEARTLAB [facility] Specimen Narrative Performed At Stress Echocardiography Report [facility] ECHO [facility]ART[facility] Demographics [facility] Patient Name Jamir ALVAREZte of Study 10/17/2018 GREG [id number] GenderMale Visit Number [id number] RaceBlack [id number] Number op Number Date of Birth1965 Referring Physician Nereyda Castro Age53 year(s) Slab Lifting Engineer Jeff Wahl RDCS InterpretingAnthony Ferrer MD Physician Fellow ALEKSANDAR Ybarra Procedure Type of Study Stress procedure:STRESS ECHO/TMT W/DOP&TRAC (Routine) Indications:Renal transplant evaluation . Clinical History ESRD, DM, HTN Contrast Medium: Definity. Height: 65 inches Weight: 90.72 kg (200 lbs) BSA: 1.98 m^2 BMI: 33.28 kg/m^2 HR: 68 bpm BP: 150/97 mmHg Rest ECG Normal sinus rhythm, IVCD, nonspecific T wave abnormality Standing HR:68 bpmStanding BP:150/97 mmHg Stress Stress Type: Pharmacologic Peak HR: 144 bpm HR Response: Normal Peak BP: 192/89 mmHg BP Response: Abnormal Predicted HR: 168 bpmHR BP Product: 47702 % of predicted HR: 86 Test Duration: 6:26 min Reason for Termination: Target heart rate Stress Interpretation STRESS ECHO. Target heart rate achieved (>85% of maximum predicted heart rate). All segments contract normally at baseline and at all stages of stress. Echocardiographically normal stress test. Results Global LVEF (rest): Normal (LVEF >50%) Global LVEF (stress): Hyperkinetic (LVEF >70%) ECG No significant ECG changes during stress and recovery. Arrhythmias PVC's Symptoms No symptoms during stress test. Stress Protocol: Pharmacologic - Dobutamine +-----+-----+------+ +------+-----+--------+--+--------+----+------+ !Stage!Time !Dosage!Other !Dosage!Heart!Blood !CP!Pain!Pain!Pain! !#! !!Medication!!Rate !Pressure!!Location!Type!Action! +-----+-----+------+ +------+-----+--------+--+--------+----+------+ !1.0!06:26!10.00 !!!100!192/89!!! !! +-----+-----+------+ +------+-----+--------+--+--------+----+------+ !2.0!04:10!20.00 !!!144!119/74!!! !! +-----+-----+------+ +------+-----+--------+--+--------+----+------+ Summary This is a negative Dobutamine Echocardiographic Stress Test. Signature Procedure Note Interface, External Ris In - 10/17/2018 6:09 PM CDT Stress Echocardiography Report Demographics Patient Name RIYA ALVAREZ Date of Study 10/17/2018 GREG Gender Male Visit Number [id number] Race Black Room Number op Number Date of 1965 Referring Physician Nereyda Castro Age 53 year(s) Slab Lifting Engineer Jeff Wahl RDCS Interpreting Anthony Ferrer MD Physician Fellow ALEKSANDAR Ybarra Procedure Type of Study Stress procedure:STRESS ECHO/TMT W/DOP&TRAC (Routine) Indications:Renal transplant evaluation . Clinical History ESRD, DM, HTN Contrast Medium: Definity. Height: 65 inches Weight: 90.72 kg (200 lbs) BSA: 1.98 m^2 BMI: 33.28 kg/m^2 HR: 68 bpm BP: 150/97 mmHg Rest ECG Normal sinus rhythm, IVCD, nonspecific T wave abnormality Standing HR:68 bpmStanding BP:150/97 mmHg Stress Stress Type: Pharmacologic Peak HR: 144 bpm HR Response: Normal Peak BP: 192/89 mmHg BP Response: Abnormal Predicted HR: 168 bpm HR BP Product: 50869 % of predicted HR: 86 Test Duration: 6:26 min Reason for Termination: Target heart rate Stress Interpretation STRESS ECHO. Target heart rate achieved (>85% of maximum predicted heart rate). All segments contract normally at baseline and at all stages of stress. Echocardiographically normal stress test. Results Global LVEF (rest): Normal (LVEF >50%) Global LVEF (stress): Hyperkinetic (LVEF >70%) ECG No significant ECG changes during stress and recovery. Arrhythmias PVC's Symptoms No symptoms during stress test. Stress Protocol: Pharmacologic - Dobutamine +-----+-----+------+ +------+-----+--------+--+--------+----+------+ !Stage!Time !Dosage!Other !Dosage!Heart!Blood !CP!Pain !Pain!Pain ! !# ! ! !Medication! !Rate !Pressure! !Location!Type!Action! +-----+-----+------+ +------+-----+--------+--+--------+----+------+ !1.0 !06:26!10.00 ! ! !100 !192/89 ! ! ! ! ! +-----+-----+------+ +------+-----+--------+--+--------+----+------+ !2.0 !04:10!20.00 ! ! !144 !119/74 ! ! ! ! ! +-----+-----+------+ +------+-----+--------+--+--------+----+------+ Summary This is a negative Dobutamine Echocardiographic Stress Test. Signature Performing Organization Address City/State/Zipcode Phone Number [facility] ECHO [facility]ART[facility] * 2D Echo W/Doppler(CW/PW/Color) (10/17/2018 9:08 AM CDT) Ejection Fraction [facility] ECHO HEARTLAB [facility] Specimen Narrative Performed At Transthoracic Echocardiography Report (TTE) [facility] ECHO HEARTLAB Demographics [facility] Patient Name Jamir ALVAREZte of Study 10/17/2018 GREG [id number] GenderMale Visit Number [id number] RaceBlack [id number] Number op Number Date of Birth1965 Referring Physician Nereyda Castro Age53 year(s) Slab Lifting Engineer Jeff Wahl [facility] InterpretingAnthony Ferrer MD Physician Fellow ALEKSANDAR Ybarra Procedure Type of Study TTE procedure:2DECHO W DOPPLER(CW/PW/COLOR) (Routine) Indications:Renal transplant evaluation . Clinical History ESRD, DM, HTN Height: 65 inches Weight: 90.72 kg (200 lbs) BSA: 1.98 m^2 BMI: 33.28 kg/m^2 HR: 68 bpm BP: 150/97 mmHg Summary 1. The left ventricle is chamber size (by PSLAX dimension) is normal. Normal LV wall thickness. All of the LV segments contract normally. LVEF by Angeles's method of disk assessment is normal (>60%). Normal diastolic function with normal LV filling pressure (LAP) at rest. LA size is normal (16-34 ml/m2). 2. The right ventricular chamber size and systolic function are within normal limits. RA size is normal. Estimated peak systolic PA pressure is 30-35 mmHg. 3. No significant valvular abnormalities. Previous Study No prior exam available for comparison. Signature Findings Rhythm/BPRegular sinus rhythm during the exam. Left Ventricle The LV endocardium is well visualized. The left ventricle is chamber size (by PSLAX dimension) is normal (male - LVIDd 4.2-5.8cm) . Normal LV wall thickness. All of the LV segments contract normally . LVEF by Angeles's method of disk assessment is normal (>60%) . Normal diastolic function with normal LV filling pressure (LAP) at rest. Left AtriumLA size is normal (16-34 ml/m2) . Right VentricleThe right ventricular chamber size and systolic function are within normal limits. Right Atrium RA size is normal. Atrial SeptumNormal interatrial septum by available views. Aortic Valve Normal AoV structure and function. No evidence of aortic stenosis. No evidence of aortic regurgitation. Mitral Valve Normal MV structure and function. No evidence of mitral regurgitation. Tricuspid ValveTV structure is normal. A trace of tricuspid regurgitation. Estimated peak systolic PA pressure is 30-35 mmHg . Pulmonic Valve Normal PV structure and function. AortaAortic root size (SInus of Valsalva diameter) is normal . Proximal ascending aorta size is normal . PericardiumNo significant pericardial effusion is visualized. IVC/SVC/PA/PV/PleuralThe estimated RA pressure by IVC dynamics 5-10mmHg . Chambers/Structures Left Atrium LA Volume: 62.41 ml LA Area: 20.42 cm^2 LA Vol. Index: 32 ml/m^2 Left Ventricle LVIDd: 4.15 cm LV Septum Diastolic: 1.04 cm LV PW Diastolic: 0.95 cm LVEDV Angeles's:113.51 ml LVESV Angeles's:34.74 ml LVEF Angeles's: 69.4 %LVEDVI: 57 ml/m^2 LVESVI: 18 ml/m^2 LVOT Diameter: 2.39 cm Aorta Ao Root S of Mimi.: 3.65 cmAscending Aorta: 3.56 cm Doppler/Quantitative Measurements Mitral Valve MV Peak E-Wave: 0.7 m/sMV Peak A-Wave: 0.57 m/s E/A Ratio: 1.23 Peak Gradient: 1.94 mmHg Dece leration Time: 185.4 msec MV Aydin. Peak: Tissue Doppler E' Septal Velocity: 0.11 m/s A' Septal Velocity: 0.08 m/s E' Lateral Velocity: 0.1 m/s A' Lateral Velocity: 0.07 m/s E/E' : 6.57 Aortic Valve Peak Velocity: 1.03 m/sMean Velocity: 0.79 m/s Peak Gradient: 4.24 mmHg Mean Gradient: 2.71 mmHg AV Area (continuity): 4.42 cm^2 AV VTI: 26.36 cm AV DVI: 0.99 LVOT Peak Velocity: 1.16 m/s Peak Gradient: 5.43 mmHg Mean Velocity: 0.76 m/s Mean Gradient: 2.75 mmHg LVOT Diameter: 2.39 cmLVOT VTI: 26.01 cm LVOT Area: 4.49 cm^2LVOT SV:116.63 ml LVOT CO: 7.93 l/min LVOT CI: 4.01 l/min/m^2 Tricuspid Valve TR Velocity: 2.43 m/s TR Gradient: 23.66 mmHg Procedure Note Interface, External Ris In - 10/17/2018 6:14 PM CDT Transthoracic Echocardiography Report (TTE) Demographics Patient Name RIYA ALVAREZ Date of Study 10/17/2018 GREG Gender Male Visit Number [id number] Race Black Room Number op Number Date of 1965 Referring Physician Nereyda Castro Age 53 year(s) Slab Lifting Engineer Jeff Wahl RDCS Interpreting Anthony Ferrer MD Physician Fellow ALEKSANDAR Ybarra Procedure Type of Study TTE procedure:2DECHO W DOPPLER(CW/PW/COLOR) (Routine) Indications:Renal transplant evaluation . Clinical History ESRD, DM, HTN Height: 65 inches Weight: 90.72 kg (200 lbs) BSA: 1.98 m^2 BMI: 33.28 kg/m^2 HR: 68 bpm BP: 150/97 mmHg Summary 1. The left ventricle is chamber size (by PSLAX dimension) is normal. Normal LV wall thickness. All of the LV segments contract normally. LVEF by Angeles's method of disk assessment is normal (>60%). Normal diastolic function with normal LV filling pressure (LAP) at rest. LA size is normal (16-34 ml/m2). 2. The right ventricular chamber size and systolic function are within normal limits. RA size is normal. Estimated peak systolic PA pressure is 30-35 mmHg. 3. No significant valvular abnormalities. Previous Study No prior exam available for comparison. Signature Findings Rhythm/BP Regular sinus rhythm during the exam. Left Ventricle The LV endocardium is well visualized. The left ventricle is chamber size (by PSLAX dimension) is normal (male - LVIDd 4.2-5.8cm) . Normal LV wall thickness. All of the LV segments contract normally . LVEF by Angeles's method of disk assessment is normal (>60%) . Normal diastolic function with normal LV filling pressure (LAP) at rest. Left Atrium LA size is normal (16-34 ml/m2) . Right Ventricle The right ventricular chamber size and systolic function are within normal limits. Right Atrium RA size is normal. Atrial Septum Normal interatrial septum by available views. Aortic Valve Normal AoV structure and function. No evidence of aortic stenosis. No evidence of aortic regurgitation. Mitral Valve Normal MV structure and function. No evidence of mitral regurgitation. Tricuspid Valve TV structure is normal. A trace of tricuspid regurgitation. Estimated peak systolic PA pressure is 30-35 mmHg . Pulmonic Valve Normal PV structure and function. Aorta Aortic root size (SInus of Valsalva diameter) is normal . Proximal ascending aorta size is normal . Pericardium No significant pericardial effusion is visualized. IVC/SVC/PA/PV/Pleural The estimated RA pressure by IVC dynamics 5-10mmHg . Chambers/Structures Left Atrium LA Volume: 62.41 ml LA Area: 20.42 cm^2 LA Vol. Index: 32 ml/m^2 Left Ventricle LVIDd: 4.15 cm LV Septum Diastolic: 1.04 cm LV PW Diastolic: 0.95 cm LVEDV Angeles's:113.51 ml LVESV Angeles's:34.74 ml LVEF Angeles's: 69.4 % LVEDVI: 57 ml/m^2 LVESVI: 18 ml/m^2 LVOT Diameter: 2.39 cm Aorta Ao Root S of Mimi.: 3.65 cm Ascending Aorta: 3.56 cm Doppler/Quantitative Measurements Mitral Valve MV Peak E-Wave: 0.7 m/s MV Peak A-Wave: 0.57 m/s E/A Ratio: 1.23 Peak Gradient: 1.94 mmHg Deceleration Time: 185.4 msec MV Aydin. Peak: Tissue Doppler E' Septal Velocity: 0.11 m/s A' Septal Velocity: 0.08 m/s E' Lateral Velocity: 0.1 m/s A' Lateral Velocity: 0.07 m/s E/E': 6.57 Aortic Valve Peak Velocity: 1.03 m/s Mean Velocity: 0.79 m/s Peak Gradient: 4.24 mmHg Mean Gradient: 2.71 mmHg AV Area (continuity): 4.42 cm^2 AV VTI: 26.36 cm AV DVI: 0.99 LVOT Peak Velocity: 1.16 m/s Peak Gradient: 5.43 mmHg Mean Velocity: 0.76 m/s Mean Gradient: 2.75 mmHg LVOT Diameter: 2.39 cm LVOT VTI: 26.01 cm LVOT Area: 4.49 cm^2 LVOT SV:116.63 ml LVOT CO: 7.93 l/min LVOT CI: 4.01 l/min/m^2 Tricuspid Valve TR Velocity: 2.43 m/s TR Gradient: 23.66 mmHg Performing Organization Address City/State/[place] Phone Number [facility] * ECG 12 lead (10/17/2018 9:03 AM CDT) Specimen Narrative Performed At Ventricular Rate 67 BPM GE MUSE Atrial Rate 67 BPM P-R Interval 206 ms QRS Duration 108 ms Q-T Interval 418 ms QTC Calculation(Bazett) 441 ms [place] 46 degrees [place] 37 degrees [place] 57 degrees Normal sinus rhythm Left atrial enlargement Nonspecific T wave abnormality Abnormal ECG No previous ECGs available Confirmed by MD Rainey Roberto ([id number]) on 10/17/2018 1:48:34 PM Procedure Note Interface, External Ris In - 10/17/2018 1:48 PM CDT Ventricular Rate 67 BPM Atrial Rate 67 BPM P-R Interval 206 ms QRS Duration 108 ms Q-T Interval 418 ms QTC Calculation(Bazett) 441 ms [place] 46 degrees [place] 37 degrees [place] 57 degrees Normal sinus rhythm Left atrial enlargement Nonspecific T wave abnormality Abnormal ECG No previous ECGs available Confirmed by MD Rainey Roberto ([id number]) on 10/17/2018 1:48:34 PM Performing Organization Address [facility] Phone Number ADRIAN KOWALSKI * Urinalysis, Routine (10/17/2018 7:47 AM CDT) Color, UA Yellow [facility] Clarity, UA Cloudy [facility] Specific [place], UA 1.014 1.001 - 1.035 [facility] pH, UA 6.0 5.0 - 8.0 [facility] Protein, UA 300 mg/dL (A) Negative [facility] Glucose, UA Negative Negative [facility] Ketones, UA Negative Negative [facility] Bilirubin, UA Negative Negative [facility] Blood, UA Small (A) Negative [facility] Nitrite, UA Negative Negative [facility] Leukocytes, UA Large (A) Negative [facility] Urobilinogen, UA 2.0 (H) 0.2 - 1.0 mg/dL [facility] RBC, UA 69 /HPF [facility] WBC, UA 1,162 /HPF [facility] Bacteria, UA Occasional [facility] Mucus Rare [facility] Specimen Source [facility] Specimen Urine Performing Organization Address City/[facility]/Zipcode Phone Number [facility] [address] [place] [address] [facility] * Urine Culture (10/17/2018 7:47 AM CDT) Result >100,000 col/mL skin alejandro [facility] Specimen Urine Performing Organization Address [facility]/[place] Phone Number [facility] [address] [place] [address] [facility] * PT/aPTT (10/17/2018 7:46 AM CDT) Protime 13.8 11.7 - 14.7 seconds [facility] INR 1.0 <=5.9 [facility] PTT 41.3 (H) 22.5 - 36.0 seconds [facility] Specimen Blood Narrative Performed At RECOMMENDED COUMADIN/WARFARIN INR THERAPY RANGES [facility] STANDARD DOSE: 2.0 - 3.0 Includes: PROPHYLAXIS for venous thrombosis, [facility] systemic embolization; TREATMENT for venous thrombosis and/or pulmonary embolus. HIGH RISK: Target INR is 2.5-3.5 for patients with mechanical heart valves. Performing Organization Address City/[facility]/Zipcode Phone Number [facility] [address] [place] [address] [facility] * CBC with platelet count + automated diff (10/17/2018 7:46 AM CDT) WBC 6.1 3.5 - 10.5 K/L [facility] RBC 5.12 4.63 - 6.08 M/L [facility] Hemoglobin 11.7 (L) 13.7 - 17.5 GM/DL [facility] Hematocrit 38.8 (L) 40.1 - 51.0 % [facility] MCV 75.8 (L) 79.0 - 92.2 fL [facility] MCH 22.9 (L) 25.7 - 32.2 pg [facility] MCHC 30.2 (L) 32.3 - 36.5 GM/DL [facility] RDW 14.6 (H) 11.6 - 14.4 % [facility] Platelets 191 150 - 450 K/CU MM [facility] MPV 9.0 (L) 9.4 - 12.4 fL [facility] nRBC 0 0 - 0 /100 WBC [facility] % Neutros 53 % [facility] % Lymphs 31 % [facility] % Monos 12 % [facility] % Eos 3 % [facility] % Baso 1 % [facility] # Neutros 3.21 1.78 - 5.38 K/L [facility] # Lymphs 1.86 1.32 - 3.57 K/L [facility] # Monos 0.71 0.30 - 0.82 K/L [facility] # Eos 0.20 0.04 - 0.54 K/L [facility] # Baso 0.06 0.01 - 0.08 K/L [facility] Immature 0 0 - 1 % [facility] Granulocytes-Relative [facility] Specimen Blood Performing Organization Address City/[facility]/[place] [address] [phone] [place] [address] * Blood typing, automated (10/17/2018 7:46 AM CDT) ABO/RH AUTOMATED (BEAKER) O NEGATIVE [facility] Specimen Blood Performing Organization Address City/[facility]/[place] [address] [facility] * Direct AHG (YONI)/Direct Herman (10/17/2018 7:46 AM CDT) Direct AHG-IGG NEGATIVE [facility] Direct AHG-C3B, C3D NEGATVIE [facility] Specimen Blood Performing Organization Address City/[facility]/[place] Phone Number [address] * Uric Acid (10/17/2018 7:46 AM CDT) Uric Acid 4.8 2.6 - 7.2 mg/dL [facility] Specimen Blood Performing Organization Address [facility]/[place] Phone Number [address] * PSA (10/17/2018 7:46 AM CDT) PSA 1.1 0.0 - 4.0 ng/mL [facility] Specimen Blood Performing Organization Address [facility]/[place] Phone Number [address] * Phosphorus (10/17/2018 7:46 AM CDT) Phosphorus 2.7 2.3 - 4.7 mg/dL [facility] Specimen Blood Performing Organization Address [facility] Phone Number [address] * PTH, Intact (10/17/2018 7:46 AM CDT) PTH 280.0 (H) 8.5 - 72.5 pg/mL [facility] Specimen Blood Performing Organization Address City/[facility]/[place] Phone Number [address] * Lactate Dehydrogenase (LDH) (10/17/2018 7:46 AM CDT) LDH 179 125 - 220 U/L [facility] Specimen Blood Performing Organization Address City/[facility]/[place] Phone Number [facility] * Hemoglobin A1c (10/17/2018 7:46 AM CDT) Hemoglobin A1C 7.1 (H) 4.3 - 6.1 % [facility] Specimen Blood Narrative Performed At POSSIBLE HEMOGLOBIN F VARIANT NOTED IN HEMOGLOBIN A1C CHROMATOGRAPH. SUGGEST [facility] HEMOGLOBIN ELECTROPHORESIS IF CLINICALLY INDICATED. [facility] Performing Organization Address City/[facility]/[place] Phone Number [address] * Gamma Glutamyl Transferase (GGT) (10/17/2018 7:46 AM CDT) GGT 49 9 - 64 U/L [facility] Specimen Blood Performing Organization Address [facility]/[place] Phone Number [address] * Lipid panel (10/17/2018 7:46 AM CDT) Triglycerides 97 mg/dL [facility] Cholesterol 184 mg/dL [facility] HDL 45 mg/dL [facility] [facility] LDL Calculated 120 mg/dL [facility] Specimen Blood Narrative Performed At Triglyceride Reference Range: [facility] Low Risk <150 [facility] [id number] High Risk 200-499 Very High Risk>=500 Cholesterol Reference Range: Low Risk <200 [id number] High Risk>240 HDL Cholesterol Reference Range: Low Risk >=60 High Risk <40 LDL Cholesterol Reference Range: Optimal<100 Near [id number] Very High >=190 Performing Organization Address [facility]/[place] Phone Number [address] * Comprehensive metabolic panel (10/17/2018 7:46 AM CDT) Protein, Total 8.4 (H) 6.0 - 8.3 gm/dL [facility] Albumin 4.1 3.5 - 5.0 g/dL [facility] Alkaline Phosphatase 100 40 - 150 U/L [facility] Total Bilirubin 0.5 0.2 - 1.2 mg/dL [facility] Sodium 138 136 - 145 meq/L [facility] Potassium 4.1 3.5 - 5.1 meq/L [facility] Chloride 96 (L) 98 - 107 meq/L [facility] CO2 32 (H) 22 - 29 meq/L [facility] BUN 30 (H) 7 - 21 mg/dL [facility] Creatinine 8.38 (H) 0.57 - 1.25 mg/dL [facility] Glucose 121 (H) 70 - 105 mg/dL [facility] Calcium 9.5 8.4 - 10.2 mg/dL [facility] AST 26 5 - 34 U/L [facility] ALT 27 6 - 55 U/L [facility] EGFR 8Comment: ESTIMATED GFR IS NOT mL/min/1.73 sq m [facility] ACCURATE CREATININE [facility] CLEARANCE IN PREDICTING GLOMERULAR FILTRATION RATE. ESTIMATED GFR IS NOT APPLICABLE FOR DIALYSIS PATIENTS. Specimen Blood Performing Organization Address City/State/Zipcode Phone Number [facility] [address] [place] [address] [facility] * HLA TYPING CII (08/06/2018 8:09 AM FRICTION WELDING MACHINE OPERATOR) HLA-DR AG1 7 [facility] HLA-DR AG2 18 [facility] HLA-DR AG3-1 [facility] HLA[facility]DR AG3-2 52 [facility] HLA[facility]DR AG4-1 53 [facility] HLA-DR AG4-2 [facility] HLA-DR AG5-1 [facility] HLA-DR AG5-2 [facility] HLA-DQA1 AG 1-1 02 [facility] HLA-DQA1 AG 1-2 04 [facility] HLA-DQB1 AG 1-1 2 [facility] HLA-DQB1 AG 1-2 4 [facility] HLA-DPA1 AG 1-1 02 [facility] HLA-DPA1 AG 1-2 01 [facility] HLA-DPB1 AG 1-1 01:01 [facility] HLA-DPB1 AG 1-2 04:01 [facility] HLA-AG Notes [facility] HLA-AG Report Comments [facility] Specimen Blood Narrative Performed At Disclaimer: [facility] This test was developed and its performance characteristics determined by the [facility] Laboratory. It has not been cleared or approved by the U.S. Food and Drug Administration. The FDA has determined that such clearance or approval is not necessary. This test is used for clinical purposes. It should not be regarded as investigational or for research. This laboratory is certified under the Clinical Laboratory Improvement Amendments of 1988 (CLIA-88) as qualified to perform high complexity clinical laboratory testing. Performing Organization Address City/State/Zipcode Phone Number [facility] ONE [facility] [address], MS: [id number], [place] [address] CLIA#[id number] CAP#[id number] UNOS#[id number] * HLA TYPING CI (08/06/2018 8:09 AM FRICTION WELDING MACHINE OPERATOR) HLA-A AG1 2 [facility] HLA-A AG2 11 [facility] HLA-B AG1 44 [facility] HLA[facility]B AG2 42 [facility] HLA-C AG1 16 [facility] HLA-C AG2 17 [facility] HLA-B BW1 4 [facility] HLA-B BW2 6 [facility] HLA-AG Notes [facility] HLA-AG Report Comments [facility] Specimen Blood Narrative Performed At Disclaimer: [facility] This test was developed and its performance characteristics determined by the [facility]. It has not been cleared or approved by the U.S. Food and Drug Administration. The FDA has determined that such clearance or approval is not necessary. This test is used for clinical purposes. It should not be regarded as investigational or for research. This laboratory is certified under the Clinical Laboratory Improvement Amendments of 1988 (CLIA-88) as qualified to perform high complexity clinical laboratory testing. Performing Organization Address City/State/[place] Phone Number [facility] Sreekanth [address], MS: [id number], [place] [address] CLIA#[id number] CAP#[id number] UNOS#[id number] * T Spot TB (08/06/2018 8:09 AM FRICTION WELDING MACHINE OPERATOR) T-Spot TB Negative [facility] Neg Ctrl Spot Count 0 [facility] Panel A Spot 2 [facility] Panel B Spot 0 [facility] Pos Ctrl Spot Ct 0 [facility] Scan Result [facility] Specimen Blood Narrative Performed At Performing Organization Address City/State/[place] Phone Number [facility] [address] 100 * FLOW PRA CLASS II WITH REFLEX TO ANTIBODY SPECIFICITY (08/06/2018 8:08 AM FRICTION WELDING MACHINE OPERATOR) Flow Class II Percent 0 [facility] Positive Flow Class Report [facility] Comments Specimen Blood Narrative Performed At Disclaimer: [facility] This test was developed and its performance characteristics determined by the [facility]. It has not been cleared or approved by the U.S. Food and Drug Administration. The FDA has determined that such clearance or approval is not necessary. This test is used for clinical purposes. It should not be regarded as investigational or for research. This laboratory is certified under the Clinical Laboratory Improvement Amendments of 1988 (CLIA-88) as qualified to perform high complexity clinical laboratory testing. Performing Organization Address [facility] Phone Number [facility] Sreek[address] Ross, [address]: [id number], [place] [address] CLIA#[id number] CAP#[id number] UNOS#[id number] * FLOW PRA CLASS I WITH REFLEX TO ANTIBODY SPECIFICITY (08/06/2018 8:08 AM FRICTION WELDING MACHINE OPERATOR) Flow Class I Percent 49 [facility] Positive Flow Class Report [facility] Comments Specimen Blood Narrative Performed At Disclaimer: [facility] This test was developed and its performance characteristics determined by the [facility]. It has not been cleared or approved by the U.S. Food and Drug Administration. The FDA has determined that such clearance or approval is not necessary. This test is used for clinical purposes. It should not be regarded as investigational or for research. This laboratory is certified under the Clinical Laboratory Improvement Amendments of 1988 (CLIA-88) as qualified to perform high complexity clinical laboratory testing. Performing Organization Address City/[facility]/[place] Phone Number [facility] ONE Sreekanth Ross, MS: [id number], [place] [address] CLIA#[id number] CAP#[id number] UNOS#[id number] * AB SPECIFICITY CLASS I (08/06/2018 8:08 AM FRICTION WELDING MACHINE OPERATOR) AB Specificity Class I B:48 60 [facility] AB Specificity Titr Class MFIs > 4000 [facility] Report Specimen Blood Narrative Performed At Disclaimer: [facility] This test was developed and its performance characteristics determined by the [facility]. It has not been cleared or approved by the U.S. Food and Drug Administration. The FDA has determined that such clearance or approval is not necessary. This test is used for clinical purposes. It should not be regarded as investigational or for research. This laboratory is certified under the Clinical Laboratory Improvement Amendments of 1988 (CLIA-88) as qualified to perform high complexity clinical laboratory testing. Performing Organization Address [facility] Phone Number [facility] ONE Sreekanth Ross, MS: [id number], [place] [address] CLIA#[id number] CAP#[id number] UNOS#[id number] * Type and Screen, Automated (08/06/2018 8:08 AM FRICTION WELDING MACHINE OPERATOR) ABO/RH AUTOMATED (BEAKER) O NEGATIVE [facility] Ab Scrn NEGATIVE [facility] Specimen Blood Performing Organization Address [facility]/[place] Phone Number [address] [address] [facility] * HIV-1 Antigen with HIV-1/2 Antibody (08/06/2018 8:08 AM FRICTION WELDING MACHINE OPERATOR) HIV-1 Antigen with HIV Nonreactive Nonreactive [facility] 1&2 Antibody [facility] Specimen Blood Performing Organization Address [facility]/[place] Phone Number [address] [address] [facility] * Hepatitis C Antibody (08/06/2018 8:08 AM FRICTION WELDING MACHINE OPERATOR) Hepatitis C Ab Nonreactive Nonreactive [facility] Specimen Blood Performing Organization Address City/[facility]/[place] Phone Number [address] * Cytomegalovirus antibody, IgM (08/06/2018 8:08 AM FRICTION WELDING MACHINE OPERATOR) CMV IGM Negative Negative, Equivocal [facility] Specimen Blood Narrative Performed At CMV IgM Result Interpretation: [facility] </=0.8 Al Negative [facility] 0.9-1.0 Al Equivocal >/=1.1 Al Positive Performing Organization Address [facility]/[place] Phone Number [address] * Hepatitis B core antibody, IgM (08/06/2018 8:08 AM FRICTION WELDING MACHINE OPERATOR) Hep B C IgM Nonreactive Nonreactive [facility] Specimen Blood Performing Organization Address City/[facility]/[place] Phone Number [phone] [place] [address] * EBV-VCA antibody, IgM (08/06/2018 8:08 AM FRICTION WELDING MACHINE OPERATOR) CARMELLA INGRAM VIRAL CAPSID Negative Negative, Equivocal [facility] ANTIGEN IGM [facility] Specimen Blood Narrative Performed At Carmella Ingram Viral Capsid Antigen IgM Result Interpretation: [facility] </=0.8 Al Negative [facility] 0.9-1.0 Al Equivocal >/=1.1 Al Positive Performing Organization Address City/[facility]/[place] Phone Number [address] [address] [phone] [place] [address] * EBV-VCA antibody, IgG (08/06/2018 8:08 AM FRICTION WELDING MACHINE OPERATOR) CARMELLA INGRAM VIRAL CAPSID Positive (A) Negative, Equivocal [facility] ANTIGEN IGG [facility] Specimen Blood Narrative Performed At Carmella Ingram Viral Capsid Antigen IgG Result Interpretation: [facility] </=0.8 Al Negative [facility] 0.9-1.0 Al Equivocal >/=1.1 Al Positive Performing Organization Address City/[facility]/[place] Phone Number [address] * RPR (08/06/2018 8:08 AM FRICTION WELDING MACHINE OPERATOR) RPR Nonreactive Nonreactive [facility] Specimen Blood Performing Organization Address City/[facility]/[place] Phone Number [address] * Hepatitis B surface antibody (08/06/2018 8:08 AM FRICTION WELDING MACHINE OPERATOR) Hep B S Ab 14.6 (H) <8.0 mIU/mL [facility] Specimen Blood Performing Organization Address [facility]/[place] Phone Number [address] * Hepatitis B surface antigen (08/06/2018 8:08 AM FRICTION WELDING MACHINE OPERATOR) hepatitis B Surface Ag Nonreactive Nonreactive [facility] Specimen Blood Performing Organization Address [facility]/[place] Phone Number [address] * Cytomegalovirus antibody, IgG (08/06/2018 8:08 AM FRICTION WELDING MACHINE OPERATOR) CYTOMEGALOVIRUS, IGG Positive (A) Negative, Equivocal [facility] Specimen Blood Narrative Performed At CMV IgG Result Interpretation: [facility] </=0.8 Al Negative [facility] 0.9-1.0 Al Equivocal >/=1.1 AlPositive Performing Organization Address [facility]/[place] Phone Number [address] * Varicella Zoster Antibody, IgG (08/06/2018 8:08 AM FRICTION WELDING MACHINE OPERATOR) Varicella IgG 5.8 [facility] Specimen Blood Narrative Performed At VARICELLA ZOSTER RESULT INTERPRETATIONS: [facility] <=0.8 AlNonreactive:Presumed non-immune to VZV [facility] 0.9-1.0 AlEquivocal >=1.1 AlReactive:Presumed immune to VZV Performing Organization Address City/State/Zipcode Phone Number [facility] [address] [place] [address] [facility] after 12/16/2017 Insurance Payer Benefit Subscriber ID Type Phone Address Plan / Group OPTUM NON UNITED - OPTUM xxxxxxxxx MEDICAID MGD CARE NON-UNITED STAR MEDICAID - MEDICAID MGD [facility] xxxxxxxxx Medicaid CARE COMM STAR Contracted PLAN
[2018-12-17 06:50] LABS: PROTHROMBIN TIME 13.7 seconds (11.9-14.5)
[2018-12-17 06:51] LABS: PARTIAL THROMBOPLASTIN TIME 41.4 seconds (23.8-35.5)
[2018-12-17 10:40] VITALS: BP 137/93
--- NOTE | 2018-12-23 21:00 | Operative Report ---
DATE OF PROCEDURE: 12/17/2018 SURGEON: Robert Gross MD PREOPERATIVE DIAGNOSIS: Right knee medial meniscus tear; right knee synovitis; right knee arthritis. POSTOPERATIVE DIAGNOSES: Right knee medial meniscus tear; right knee synovitis; right knee arthritis. OPERATION/PROCEDURE PERFORMED: The patient underwent right knee exam under anesthesia, right knee arthroscopy, right knee partial medial meniscectomy, right knee chondroplasty of the patella, the trochlea of the medial femoral condyle, the medial tibial plateau, the lateral femoral condyle, and lateral tibial plateau. There was also a partial synovectomy performed and arthroscopic resection of the medial shelf plica. LITHOPRESS OPERATOR: There was no acute care assistant. ANESTHESIA: General endotracheal intubation anesthesia. IV FLUIDS: Per the anesthesia record. BRIEF DISCUSSION OF THE PATIENT'S OPERATIVE PROCEDURE: Mr. Alvarez was taken to the operating room, placed in the supine position on the operating room table. Following induction of general anesthesia as well as endotracheal intubation, the patient's right lower extremity was examined under anesthesia. He was found to have a mild effusion within the knee joint. Range of motion of the knee demonstrated mild stiffness of flexion. There were no surgical scars about the knee joint fluid. The ligaments were stable. The patient's lower extremity was prepped and draped in standard surgical fashion. A two-port technique was used to provide this patient arthroscopic evaluation of the knee joint. Examination of suprapatellar pouch, medial lateral gutters found no evidence of loose bodies. 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 There was also a large inflamed medial shelf plica interdigitating between the patella and the trochlea. 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 This scope was advanced to medial compartment. Examination of the medial compartment demonstrated a torn posterior horn of the medial meniscus. 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 A combination of biting forceps and the shaver were used to resect. The radial tear of the posterior horn of the medial meniscus. Chondroplasties of the medial femoral condyle and medial tibial plateau performed at this time. The scope was advanced to the intercondylar notch and the anterior cruciate ligament was identified and found to be intact. The scope was then advanced to the lateral compartment and chondromalacia of the articulating surfaces were intact. A chondroplasty of the lateral femoral condyle and lateral tibial plateau performed at this time. Scope was then placed in suprapatellar pouch and chondroplasties of the patellar trochlear performed. A partial synovectomy was performed at this time, removing the poly villonodular synovitis. The medial shelf plica was also resected at this time. The knee was then deflated with sterile normal saline. The portal sites were closed using 4-0 nylon suture. The portal sites as well as the knee itself has been injected with 0.5% Marcaine with epinephrine. Sterile dressings were applied. The patient was then awakened and taken to the postanesthesia care unit in stable condition. MD GILBERTO Hui/EUGENE /[id number]
== END | disposition home or self-care (01) ==
LOC: OR 05:12
PROVIDERS: ATTEND Specialist
DX: S83.221A Peripheral tear of medial meniscus, current injury, right knee, initial encounter (principal); M17.11 Unilateral primary osteoarthritis, right knee; M24.561 Contracture, right knee; E11.22 Type 2 diabetes mellitus with diabetic chronic kidney disease; Z99.2 Dependence on renal dialysis; Z83.3 Family history of diabetes mellitus; Z82.49 Family history of ischemic heart disease and other diseases of the circulatory system; Z79.4 Long term (current) use of insulin; D64.9 Anemia, unspecified; I12.0 Hypertensive chronic kidney disease with stage 5 chronic kidney disease or end stage renal disease; N18.6 End stage renal disease; Z01.810 Encounter for preprocedural cardiovascular examination; Z01.812 Encounter for preprocedural laboratory examination
CPT/HCPCS: 29881; 36415 ×2; 80048; 82948; 84132; 85025; 85610 ×2; 85730 ×2; 93005; J0131; J0690; J1100; J2001; J2405; J2704; J7040; J3010